=== PATIENT | male | born 2000 | race Caucasian/White ===

== ENCOUNTER 2023-06-12 14:39 | Emergency (ER) | payer OTHER, SELFPAY ==
--- NOTE | ~2023-06-12 | CT_ITS ---
EXAMINATION: CT HEAD W/O IV CONTRAST CT FACIAL BONES WITHOUT IV CONTRAST CT CERVICAL SPINE W/O IV CONTRAST CLINICAL INFORMATION: History of seizure, laceration to left eye, head strike. COMPARISON: None TECHNIQUE: Head - Contiguous axial imaging of the head was performed from the skull base to the vertex without the administration of intravenous contrast, and axial images are reconstructed at 2 mm and 5 mm slice thickness. Cervical spine and facial bones - Volumetric, helical CT acquisitions of the cervical spine and facial bones obtained without contrast; in addition to the standard set of axial images, multiplanar reformatted images were provided in the coronal and sagittal imaging planes. This CT examination was performed using dose optimization techniques as appropriate, variously including the following: *Automated exposure control *Adjustment of mA and/or kV according to patient size (this includes techniques or standardized protocols for targeted exams where dose is matched to indication/reason for exam; i.e. extremities or head) *Use of iterative reconstruction technique DLP: 2384 mGy-cm (total) FINDINGS: HEAD: The patient is examined during tilted head position. Also, there is mild motion degradation of images which limits assessment of cerebral hemispheres. There is no visible acute intracranial hemorrhage or extra-axial surface collection. No hydrocephalus or midline shift. The parker-white matter differentiation is maintained. No overt evidence of acute major vascular territory infarction. The brainstem and cerebellum are unremarkable. The evaluation of the calvarium is partially limited by patient's motion. No fractures are seen. The mastoid air cells and middle ear cavities are clear. FACIAL BONES: The globes and orbital hernández, including lamina papyracea, are intact. The orbital apex, optic canals, and retrobulbar fat planes are normal. The maxilla, mandible and temporomandibular joints are intact. Nasal bones, pterygoid plates and zygomatic arches are normal. Mucous retention cyst at the floor the right maxillary antrum, and secretions layer along the posterior right maxillary sinus wall. No evidence of any hyperdense blood products within paranasal sinuses. The ostiomeatal units are patent. No soft tissue hematoma in the face. CERVICAL SPINE: No acute abnormality. The skull base, C1 and C2 lateral masses and atlantodental articulation are intact. No dens fracture. The vertebral body heights and alignment are maintained. No fractures in the anterior or posterior elements. No prevertebral soft tissue edema or soft tissue hematoma. The disc spaces are normal. The facet joints and uncovertebral joints are unremarkable. No osseous stenosis of the spinal canal or neural foramina. The examined lung apices are clear. Thyroid gland is normal. CT/CT cervical spine wo IV con IMPRESSION: * Somewhat limited motion degraded examination the brain. * No evidence of intracranial hemorrhage, extra-axial surface collection or calvarial fracture. * Cervical spine has a normal appearance. No fracture or malalignment of vertebra. * No evidence of acute maxillofacial bone injury or facial soft tissue hematoma.
--- NOTE | 2023-06-12 15:23 | ED.GENADULT ---
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 Per the patient's father, the patient has about 2 seizures per year His last seizure was about 7 months ago He has been compliant with all of his medications The patient's med rec looks like he takes Depakote and Keppra The patient had a seizure around 8:00 a.m. that lasted a few seconds The patient did strike his head but has been acting appropriately since The patient's parents both have upper respiratory symptoms in the flu. Apparently the patient himself has not been coughing has not had any fevers or any other symptoms. He has no complaints Related Data Allergies Allergy/AdvReac Type Severity Reaction Status Date / Time No Known Allergies Allergy Verified 06/12/23 15:23 Review of Systems Constitutional: Constitutional: Denies body ache(s), Denies chills, Denies fever(s) and Denies headache(s) Eyes: Eyes: Denies blurry vision ENT: Denies headache(s) and Denies throat swelling Cardiovascular: Cardiovascular: Denies chest pain and Denies dyspnea Respiratory: Respiratory: Denies cough and Denies dyspnea Gastrointestinal: Gastrointestinal: Denies abdominal pain, Denies nausea and Denies vomiting Musculoskeletal: Musculoskeletal: Denies back pain Integumentary/Breasts: Skin/Breast: Reports wounds Neurologic: Denies headache(s) and Reports convulsions Allergic/Immunologic: Allergic/Immunologic: Denies throat swelling PMFSH Social History Social History Alcohol intake: never Smoked in Last 30 Days: No Use of substances other than those prescribed or required for medical reasons: No Advance Directives: No Advance Directives Information Provided: No Physical Exam ED Vital Signs: Vital Signs - 24 hr 06/12/23 15:24 06/12/23 16:53 Temperature 97.9 F 97.7 F Pulse Rate 86 85 Respiratory Rate 18 16 Blood Pressure 118/62 118/70 Pulse Oximetry 97 96 Oxygen Delivery Method Room Air Room Air BMI result Body Mass Index 33.0 Const General: healthy appearing, comfortable, no acute distress, alert and awake Nutritional Appearance: well nourished Orientation/consciousness: patient oriented x3 HENMT Throat: Yes posterior oropharynx normal Eyes Other: Patient has a 1 cm linear, full-thickness laceration just inferior to the left eyebrow. No active bleeding Eyelids: Yes eyelids normal Conjunctivae: conjunctivae normal Sclerae: sclerae normal Corneas: corneas normal Pupils: Equal, round and reactive pupils present EOM: EOMs intact bilaterally Neck Neck: Yes full ROM Resp Effort & Inspection: normal respiratory effort, able to speak in complete sentences and not labored Cardio Rate: regular rate Rhythm: regular rhythm GI Inspection: No distended Palpation (GI): Soft to palpation, not firm, nontender, no guarding and not rigid Skin General skin exam: elasticity normal Neuro General: patient oriented x3 Cranial nerves: Yes CN's II-XII intact bilaterally, Yes Equal, round and reactive pupils present and Yes Bilaterally intact EOM present Cognition (Neuro): normal cognition Extrem Other: Moving all extremities well without any obvious deformities Course Course Course Narrative: RME:?23 yo male hx of epilepsy here w/ dad following seizure this morning. dad states the patient was in the middle of taking his medications this morning when he suddenly began to seize. He fell to the ground hitting the left side of his head. Dad witnessed the seizure and states it lasted for less than a minute. Patient has a lack to his left eyebrow. No tongue laceration. No bowel or bladder incontinence. no n/v. Patient compliant with seizure meds. States he takes about 4 different medications however can not recall the name. 1 cm lac to left eyebrow. eoms intact w/ entrapment. basic labs, CT ordered. Full HPI, ROS and PE to be performed by the primary ED provider. Procedures Laceration Laceration 1: Site: face Side (If applicable): left (Eyebrow) Size (cm): 1 Description: linear Depth: simple, single layer Pre-repair: wound explored and irrigated extensively Technique: simple, interrupted (Exofin adhesive skin glue) Medical Decision Making Medical Decision Making MDM Narrative: 23-year-old male presents for evaluation after a seizure and head strike. He has a small laceration that requires repair. Discussed risks and benefits of sutures versus Dermabond. The patient's father elected to have the wound closed with Dermabond. He reports the tetanus is up-to-date. Patient had CT imaging of the brain, cervical spine and maxillofacial bones which did not show any evidence of traumatic injury. The patient has been back to his baseline and has been in the ER for several hours without any further seizure activity. He can be discharged to follow-up with his outpatient providers. Differential Diagnosis Differential Diagnoses: The differential diagnosis associated with the presentation includes Seizure disorder Epilepsy Minor head injury Laceration Skin tear Puncture wound Influenza Admission/Observation Consideration of admission/observation: Escalation of care including admission/observation considered Consider admission for seizures with head strike however the patient has had no further seizures and is back to his baseline Lab Data MDM Lab Attestation statement: I reviewed the patient's lab results. Mild leukocytosis which is likely related to seizure activity, no anemia. Normal platelet count. No significant electrolyte abnormalities. 06/12/23 15:48 06/12/23 15:48 Labs: Lab Results 06/12/23 Range/Units 15:48 WBC 12.9 H (4.8-10.8) X10*3/uL RBC 5.35 (4.60-5.80) X10*6/uL Hgb 14.6 (14.0-18.0) g/dl Hct 43.6 (42.0-52.0) % MCV 81.5 (80.0-98.0) fL MCH 27.3 (27.0-33.0) pg MCHC 33.5 (31.0-36.0) g/dl RDW 13.2 (11.0-16.0) % Plt Count 172 (160-400) X10*3/uL MPV 12.8 H (9.4-12.4) fL Immature Gran % (Auto) 0.5 H (0.0-0.4) % Neut % (Auto) 80.1 H (45-73) % Lymph % (Auto) 13.0 L (20-40) % Preble % (Auto) 6.0 (2-11) % Eos % (Auto) 0.1 (0-4) % Baso % (Auto) 0.3 (0-2) % Lymph # (Auto) 1.7 (1.2-4.9) X10*3/uL Preble # (Auto) 0.8 (0.1-1.2) X10*3/uL Eos # (Auto) 0.0 (0.0-0.4) X10*3/uL Baso # (Auto) 0.0 (0.0-0.2) X10*3/uL Abs Immat Gran (auto) 0.06 H (0.00-0.03) X10*3/uL Absolute Neuts (auto) 10.3 H (2.0-8.3) x10*3/uL Absolute Nucleated RBC 0.000 (0.0-0.012) X10*3/uL Nucleated RBC % (auto) 0.0 (0.0-0.2) /100WBC Smear Tech's Comments VERIFIED Sodium 139 (135-145) mmol/L Potassium 4.6 (3.3-5.1) mmol/L Chloride 106 (96-108) mmol/L Carbon Dioxide 19 L (22-29) mmol/L Anion Gap 19 (12-20) BUN 9 (9-16) mg/dL Creatinine 0.69 (0.5-1.4) mg/dL Estim Creat Clear Calc 217.1 Estimated GFR > 60 Random Glucose 90 (60-115) mg/dL Calcium 10.0 (8.4-10.2) mg/dL Magnesium 2.0 (1.6-2.6) mg/dL Total Bilirubin 0.6 (0.0-1.0) mg/dL AST 26 (5-37) U/L ALT 27 (0-40) U/L Alkaline Phosphatase 72 (39-117) U/L Total Protein 9.5 H (6.5-8.0) g/dL Albumin 4.6 (3.5-5.0) g/dL Influenza Type A (PCR) NEGATIVE (Negative) Influenza Type B (PCR) NEGATIVE (Negative) RSV RNA Qual (PCR) NEGATIVE (Negative) SARS-CoV-2 RNA (RT-PCR) NEGATIVE (Negative) Independent Interpretation I performed an independent interpretation of an: CT Scan (CT brain with no evidence of intracranial hemorrhage, mass effect or midline shift) Radiology Impression Discussion of test interpretation with radiology: I have reviewed the radiologist's reading. Radiologist Impression: * Somewhat limited motion degraded examination the brain. * No evidence of intracranial hemorrhage, extra-axial surface collection or calvarial fracture. * Cervical spine has a normal appearance. No fracture or malalignment of vertebra. * No evidence of acute maxillofacial bone injury or facial soft tissue hematoma. Discharge Plan Discharge Clinical Impression: Generalized seizure, Facial laceration Patient Disposition: Home, Self-Care Instructions: Laceration (ED) Additional Instructions: David can continue taking all his medications as prescribed. He had a wound closed with skin glue today. Keep a clean and dry for the rest of tonight. Tomorrow he may shower as he normally would The glue should dissolve on its own in 5-7 days Follow-up with his primary doctor. If he starts to have fevers, cough or other signs of the flu, I recommend you call his primary doctor for a prescription of Tamiflu
[2023-06-12 15:24] VITALS: BP 118/62; PULSE 86; RESP 18; TEMP 36.6; O2SAT 97; BMI 33.0
[2023-06-12 15:58] LABS: Basophils Percent Auto 0.3 % (0-2); Eosinophils Percent Auto 0.1 % (0-4); Hematocrit 43.6 % (42.0-52.0); Hemoglobin 14.6 g/dl (14.0-18.0); Imm Gran Abs Auto 0.06 X10*3/uL (0.00-0.03); Imm Gran Pct Auto 0.5 % (0.0-0.4); Lymphocytes Absolute Auto 1.7 X10*3/uL (1.2-4.9); MANUAL DIFF FLAG SCAN; Mean Corpuscular HGB Conc 33.5 g/dl (31.0-36.0); Mean Corpuscular Hemoglobin 27.3 pg (27.0-33.0); Mean Corpuscular Volume 81.5 fL (80.0-98.0); Mean Platelet Volume 12.8 fL (9.4-12.4); Monocytes Absolute Auto 0.8 X10*3/uL (0.1-1.2); Neutrophils Absolute Auto 10.3 x10*3/uL (2.0-8.3); Neutrophils Percent Auto 80.1 % (45-73); PLT CLUMP 1; Red Blood Count 5.35 X10*6/uL (4.60-5.80); Red Cell Distribution Width 13.2 % (11.0-16.0); SCAN SMEAR FLAG 1
[2023-06-12 16:16] LABS: Alanine Aminotransferase 27 U/L (0-40); Albumin Level 4.6 g/dL (3.5-5.0); Alkaline Phosphatase 72 U/L (39-117); Anion Gap 19 (12-20); Aspartate Amino Transferase 26 U/L (5-37); Bilirubin Total 0.6 mg/dL (0.0-1.0); Blood Urea Nitrogen 9 mg/dL (9-16); Carbon Dioxide 19 mmol/L (22-29); Chloride 106 mmol/L (96-108); Creatinine Clr Calc Pharmacy 217.1; Estimated Glomerular Filt Rate > 60; Glucose Random 90 mg/dL (60-115); Potassium 4.6 mmol/L (3.3-5.1); Sodium 139 mmol/L (135-145); Total Protein 9.5 g/dL (6.5-8.0)
[2023-06-12 16:17] LABS: White Blood Count 12.9 X10*3/uL (4.8-10.8)
[2023-06-12 16:18] LABS: Platelet Count 172 X10*3/uL (160-400); SLIDE REVIEW VERIFIED
[2023-06-12 16:39] LABS: Influenza A PCR NEGATIVE (Negative); Influenza B PCR NEGATIVE (Negative); Resp Syncy Virus RNA Qual PCR NEGATIVE (Negative); SARS COV2 PCR INHOUSE NEGATIVE (Negative)
[2023-06-12 16:53] VITALS: BP 118/70; PULSE 85; RESP 16; TEMP 36.5; O2SAT 96
--- NOTE | 2023-06-12 16:54 | PC.NURSE ---
patient a&ox3, labs drawn, swab obtained, pt placed on bus driver/monitor nsr 90s, vss, family at bedside. pt denying pain at this time, noted lac to lt eyebrow area, seizure pads applied, no sz activity noted at this time, call vazquez within reach, will continue to montior
== END 2023-06-12 20:00 | disposition home or self-care (01) ==
PROVIDERS: Physician Assistant Medical; Emergency Provider Emergency Medicine
DX: G40.409 Other generalized epilepsy and epileptic syndromes, not intractable, without status epilepticus (principal); S01.112A Laceration without foreign body of left eyelid and periocular area, initial encounter; Z79.899 Other long term (current) drug therapy; W18.30XA Fall on same level, unspecified, initial encounter; Y93.9 Activity, unspecified; Y92.9 Unspecified place or not applicable; Y99.9 Unspecified external cause status; Z11.52 Encounter for screening for COVID-19; Z20.828 Contact with and (suspected) exposure to other viral communicable diseases
CPT/HCPCS: 0241U; 12011; 70450; 70486; 72125; 80053; 83735; 85025; 99284